=== PATIENT | female | born 1980 | race Caucasian/White ===

== ENCOUNTER 2017-11-04 08:52 | Inpatient (IN) | payer BC ==
[~2017-11-04] VITALS: Ht 165.1 cm; Wt 98.6 kg
[~2017-11-04 08:52] MED LIST: CALCTAB5 PO; FERR1TAB23 PO; FOLI400T34 PO; LAMO100T16 PO; MTR600X PO; PRENTAB26 PO
[2017-11-04 11:02] VITALS: Ht 165.1 cm; Wt 98.6 kg
[2017-11-04 11:07] LABS: HEMATOCRIT 40.6 % (37-47); MEAN CELL VOLUME 88.1 fL (80-100); MEAN CORPUSCULAR HEMOGLOBIN 30.8 pg (25-34); MEAN PLATELET VOLUME 10.9 fL (7.4-10.4); PLATELET COUNT 206 K/uL (130-400); RED BLOOD COUNT 4.61 M/uL (4.2-5.4)
[2017-11-04 11:32] LABS: ALB/GLOB RATIO 0.7 (0.9-2); BUN/CREATININE RATIO 17.6 (10-20); CALCIUM 8.9 mg/dl (8.5-10.1); CREATININE 0.8 mg/dl (0.60-1.20); POTASSIUM 4.1 mmol/L (3.5-5.1)
[2017-11-04] MEDS: LACTATED RINGER'S 1000ML 1,000 ML IV SCH ×2 (12:25→17:39)
[2017-11-04] MEDS ORDERED: FENTANYL 2MCG/ML ROPIV 1.25MG/ML 100ML BAG EPI ONE (12:28)
[2017-11-04] MEDS ORDERED: BUPIVACAINE 0.25% 30 ML VIAL ONE (12:28)
[2017-11-04] MEDS ORDERED: EpHEDrine SULFATE INJ 50 MG/ML AMP ONE (12:28)
[2017-11-04] MEDS ORDERED: FENTANYL CITRATE INJ 50 MCG/1 ML 2 ML VIAL ONE (12:29)
[2017-11-04] MEDS ORDERED: NALOXONE HCL INJ 1 MG in SODIUM CHLORIDE 0.9% 1000ML 1,000 ML IV PRN ×4 (13:25)
[2017-11-04] MEDS ORDERED: LACTATED RINGER'S 1000ML 500 ML IV PRN (13:25)
[2017-11-04] MEDS ORDERED: NALOXONE HCL INJ 0.4 MG/1 ML VIAL/CARP IV PRN (13:30)
[2017-11-04] MEDS ORDERED: NALBUPHINE HCL INJ 10 MG/ML AMP IV PRN (13:30)
[2017-11-04] MEDS ORDERED: FENTANYL 2MCG/ML ROPIV 1.25MG/ML 100ML BAG EPI PRN (13:30)
[2017-11-04] MEDS ORDERED: ONDANSETRON INJ 2 MG/ML 2 ML VIAL IV PRN (13:30)
[2017-11-04] MEDS ORDERED: DiphenhydrAMINE HCL 50 MG/ML VIAL IV PRN (13:30)
[2017-11-04] MEDS ORDERED: PROMETHAZINE HCL INJ 25 MG in SODIUM CHLORIDE 0.9% 50ML 50 ML IV PRN (13:30)
[2017-11-04] MEDS ORDERED: EpHEDrine SULFATE INJ 50 MG/ML AMP IV PRN (13:30)
--- NOTE | 2017-11-04 15:25 | HISTORY & PHYSICAL EXAMINATION ---
DATE OF ADMISSION: 11/04/2017 HISTORY OF PRESENT ILLNESS: The patient is a 37-year-old G3, P3 due date 11/01/2017 making her 40 weeks and 3 days today who presented to labor and delivery for labor check. On arrival to labor and delivery, she had no shortness of breath, no chills, no fever. No bloody show. Was examined and found to be about 1 cm dilated. She had contractions 1-2 minutes and contraction intensity, worsened also on my arrival. Two elevated blood pressures were recorded with 2+ protein uterine. Decision was therefore made to admit patient and anticipate labor. course has been unremarkable except for history of possible early twin seen earlier before 12 weeks. The is presently a ruiz however. The patient saw maternal medicine throughout her and has done well. LABS: Blood type O positive, antibody negative, rubella immune, GBS negative. PAST MEDICAL HISTORY: 1. The patient has a history of epilepsy. 2. Herpes zoster. PAST SURGICAL HISTORY: Dental procedures. 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 The patient had a second delivery in June 2015 with twin , baby weight 6 pounds 4 ounces and 6 pounds 10 ounces. SOCIAL HISTORY: The patient denies tobacco, drug or alcohol use. FAMILY HISTORY: Noncontributory. PHYSICAL EXAMINATION: GENERAL: Well-developed, well-nourished white female in labor discomfort. HEART: S1, S2, regular rhythm and rate. LUNGS: Clear to auscultation bilaterally, no wheezes, crackles or rales. ABDOMEN: Gravid. Bedside ultrasound shows cephalic presentation. EXTREMITIES: No cyanosis, clubbing or edema. PELVIC EXAMINATION: On admission is 1 cm. ASSESSMENT AND PLAN: A 37-year-old G3, P3 at 40 and 2. The patient admitted for labor. The patient has elevated blood pressures and protein in urine worked up for hypertensive disorder. GBS is negative. Admit patient and anticipate vaginal delivery.
[2017-11-04] MEDS ORDERED: OXYTOCIN 30 UNITS/500ML NSS IV PRN ×2 (16:30→18:30)
[2017-11-04] MEDS ORDERED: METHYLERGONOVINE MALEATE 0.2 MG/ML AMP ONE (18:09)
[2017-11-04] MEDS ORDERED: MISOPROSTOL 200 MCG TAB ONE (18:22)
[2017-11-04] MEDS ORDERED: MISOPROSTOL 200 MCG TAB PR SCH (18:30)
[2017-11-04] MEDS ORDERED: LANOLIN OINT EXT PRN ×2 (18:30)
[2017-11-04] MEDS ORDERED: METHYLERGONOVINE MALEATE 0.2 MG/ML AMP IM ONE (18:30)
[2017-11-04] MEDS ORDERED: HYDROCORTISONE ACETATE 25 MG SUPP PR PRN (18:30)
[2017-11-04] MEDS ORDERED: ACETAMINOPHEN/CODEINE 300/30MG TAB PO PRN ×2 (18:30)
[2017-11-04] MEDS ORDERED: OXYCODONE/ACETAMINOPHEN 5-325 TAB PO PRN (18:30)
[2017-11-04] MEDS ORDERED: SUPERCREAM 0.870 % 15GM JAR EXT PRN (18:30)
[2017-11-04] MEDS ORDERED: BENZOCAINE 20% AER SPR 82.5 GM CAN EXT PRN (18:30)
[2017-11-04] MEDS ORDERED: ACETAMINOPHEN 325 MG TAB PO PRN (18:30)
--- NOTE | 2017-11-04 19:06 | Anesthesia Procedure Note ---
Anesthesia Epidural Removal Nt Date & Time Nov 04, 2017 at 19:06 Vital Signs Pain Intensity: 0.0 Notes Mental Status: alert / awake / arousable, participated in evaluation Nausea / Vomiting: adequately controlled Pain: adequately controlled Airway Patency, RR, SpO2: stable & adequate BP & HR: stable & adequate Hydration State: stable & adequate Neuraxial Anesthesia: was administered Anesthetic Complications: no major complications apparent, pt satisfied with anesthetic care Epidural: removed without complications, with tip intact
[2017-11-04 21:10] VITALS: BP 165/102; PULSE 93; TEMP 37.5
--- NOTE | 2017-11-04 21:12 | Progress Note ---
Progress Note Date of Service Nov 04, 2017. Progress Note Pt is s/p VD doing well Elevated BP since delivery denies headache, SOB, visual changes or RUQ pain Plan repeat CBC and NURSE SANE start on labetalol
[2017-11-04] MEDS: DOCUSATE SODIUM 100 MG CAP PO SCH (21:40)
[2017-11-04 21:46] LABS: HEMATOCRIT 39.6 % (37-47); MEAN CELL VOLUME 88.6 fL (80-100); MEAN CORPUSCULAR HEMOGLOBIN 31.1 pg (25-34); MEAN PLATELET VOLUME 10.8 fL (7.4-10.4); PLATELET COUNT 185 K/uL (130-400); RED BLOOD COUNT 4.47 M/uL (4.2-5.4); WHITE BLOOD COUNT 17.26 K/uL (4.8-10.8)
[2017-11-04] MEDS: LABETALOL HCL 100 MG TAB PO SCH (21:47)
[2017-11-04 21:48] LABS: MEAN CORPUSCULAR HGB CONC 35.1 g/dl (32-36)
[2017-11-04 22:14] LABS: ALB/GLOB RATIO 0.7 (0.9-2); BUN/CREATININE RATIO 13.1 (10-20); CALCIUM 8.4 mg/dl (8.5-10.1); CREATININE 0.85 mg/dl (0.60-1.20)
[2017-11-04] MEDS: IBUPROFEN 600 MG TAB PO PRN (22:20)
[2017-11-04 23:40] VITALS: BP 161/94; PULSE 73; TEMP 37.3; O2SAT 97
[2017-11-04 23:55] VITALS: BP 135/82; PULSE 68
[2017-11-05 04:55] VITALS: BP 136/86; PULSE 76; TEMP 36.6; O2SAT 97
[2017-11-05] MEDS: IBUPROFEN 600 MG TAB PO PRN ×3 (05:36→21:37)
[2017-11-05 06:41] LABS: HEMATOCRIT 36.9 % (37-47)
--- NOTE | 2017-11-05 07:03 | DELIVERY SUMMARY ---
DATE OF OPERATION: 11/04/2017 DELIVERY NOTE The patient delivered a live female in left occiput anterior presentation. There was no nuchal cord. Infant was delivered, placed on mother's abdomen. Prior to delivery, the patient was known to have moderate meconium. Pediatric team was present at the time of delivery. Cord was clamped after 1 minute and handed over to the pediatric team. score is 9 and 9. Placenta was spontaneously delivered. Inspection of the placenta shows a normal gross placenta. Three-vessel cord was noted. Inspection of the perineum showed a second-degree midline laceration which was repaired in layers with 3-0 Vicryl. Rectal exam post repair showed good sphincter tone. No sutures were palpated in the rectum. Estimated blood loss was 500 mL. All instruments were removed from the vagina and accounted for x2 including sponges, needles and retractors. Baby and mother are doing well and hemodynamically stable. I attest to the content of the Intraoperative Record and any orders documented therein. Any exception s are noted below.
[2017-11-05 07:30] VITALS: BP 136/91; PULSE 65; TEMP 37.4; O2SAT 97
[2017-11-05] MEDS ORDERED: LABETALOL HCL 100 MG TAB PO SCH ×2 (08:00)
[2017-11-05] MEDS: LABETALOL HCL 100 MG TAB PO SCH ×2 (09:00→20:19)
[2017-11-05] MEDS: FERROUS SULFATE 325 MG TAB PO SCH (09:01)
[2017-11-05] MEDS: PRENATAL VITAMIN TAB PO SCH (09:01)
[2017-11-05] MEDS: DOCUSATE SODIUM 100 MG CAP PO SCH ×2 (09:04→20:18)
--- NOTE | 2017-11-05 09:27 | OB/GYN Progress Note ---
BELL STAFF Progress Note Date of Service Nov 05, 2017. Subjective conversation w/ patient, physical exam Ambulation: ambulating normally Voiding: no voiding problems Passing Gas: Yes Diet Tolerance: Regular Diet Lochia: Moderate Feeding Type: Bottle Feeding Pain: 11/24 Notes: Doing well, no concerns. Tolerating regular diet. Ambulating without difficulty. Denies SANCHEZ, changes in vision or abdominal pain. BP's improved on labetalol. Lochia moderate. Objective Vital Signs Date Time Temp Pulse Resp B/P (MAP) Pulse Ox O2 Delivery O2 Flow Rate FiO2 11/05/17 04:55 36.6 76 18 136/86 (103) 97 Room Air 11/04/17 23:55 68 135/82 (99) 11/04/17 23:40 37.3 73 18 161/94 (116) 97 Room Air 11/04/17 23:40 Room Air 11/04/17 21:10 Room Air 11/04/17 21:10 37.5 93 20 165/102 (123) Room Air Physical Exam General Appearance: WELL-APPEARING Respiratory/Chest: chest non-tender, lungs clear Cardiovascular: regular rate, rhythm Abdomen: normal bowel sounds, soft Fundus: Firm Extremities: normal range of motion, non-tender, no calf tenderness Laboratory Results Last 24 Hours Test 11/04/17 10:51 11/04/17 21:23 11/05/17 06:27 White Blood Count 12.40 K/uL 17.26 K/uL Red Blood Count 4.61 M/uL 4.47 M/uL Hemoglobin 14.2 g/dL 13.9 g/dL 12.7 g/dL Hematocrit 40.6 % 39.6 % 36.9 % Mean Corpuscular Volume 88.1 fL 88.6 fL Mean Corpuscular Hemoglobin 30.8 pg 31.1 pg Mean Corpuscular Hemoglobin Concent 35.0 g/dl 35.1 g/dl RDW Standard Deviation 42.6 fL 43.5 fL RDW Coefficient of Variation 13.3 % 13.5 % Platelet Count 206 K/uL 185 K/uL Mean Platelet Volume 10.9 fL 10.8 fL Sodium Level 134 mmol/L Potassium Level 4.1 mmol/L Chloride Level 105 mmol/L Carbon Dioxide Level 20 mmol/L Anion Gap 9.0 mmol/L Blood Urea Nitrogen 14 mg/dl Creatinine 0.80 mg/dl Est Creatinine Clear Calc Drug Dose 114.1 ml/min Estimated GFR () 110.7 Estimated GFR (Non- 95.5 BUN/Creatinine Ratio 17.6 Random Glucose 83 mg/dl Calcium Level 8.9 mg/dl Total Bilirubin 0.2 mg/dl Aspartate Amino Transf (AST/SGOT) 24 U/L Alanine Aminotransferase (ALT/SGPT) 23 U/L Alkaline Phosphatase 126 U/L Total Protein 6.8 gm/dl Albumin 2.8 gm/dl Globulin 4.0 gm/dl Albumin/Globulin Ratio 0.7 Assessment and Plan Post- Day Number: 1 Continue Routine Care: -Continue with labetalol, BP's improved -Continue routine care -Anticipate D/C home tomorrow.
[2017-11-05 13:00] VITALS: BP 132/88; PULSE 86; TEMP 37.3; O2SAT 98
[2017-11-05 16:00] VITALS: BP 146/89; PULSE 88; TEMP 37.4; O2SAT 97
[2017-11-05] MEDS ORDERED: BISACODYL 5 MG TABEC PO SCH (20:00)
[2017-11-05 23:15] VITALS: BP 124/76; PULSE 79; TEMP 36.8; O2SAT 97
[2017-11-06] MEDS ORDERED: BISACODYL 10 MG SUPP PR PRN (07:00)
[2017-11-06] MEDS: IBUPROFEN 600 MG TAB PO PRN (07:07)
[2017-11-06 08:35] VITALS: BP 119/76; PULSE 86; TEMP 37
[2017-11-06] MEDS: LABETALOL HCL 100 MG TAB PO SCH (09:01)
[2017-11-06] MEDS: FERROUS SULFATE 325 MG TAB PO SCH (09:02)
[2017-11-06] MEDS: DOCUSATE SODIUM 100 MG CAP PO SCH (09:02)
[2017-11-06] MEDS: PRENATAL VITAMIN TAB PO SCH (09:02)
--- NOTE | 2017-11-06 11:23 | OB/GYN Progress Note ---
MANAGER OF APPLICATIONS DEVELOPMENT Progress Note Date of Service: Nov 06, 2017. Patient is seen and examined. She feels well, no complaints. Ambulating without dizziness Voiding without difficulty Tolerating regular diet with out N&V Bleeding is minimal No fever/ chills/ CP/ SOB/ N&V/ Leg pain/ SANCHEZ/ Change in vision Bottle feeding without problems Date Time Temp Pulse Resp B/P (MAP) Pulse Ox O2 Delivery O2 Flow Rate FiO2 11/06/17 08:35 37.0 86 20 119/76 (90) Room Air 11/06/17 08:35 Room Air 11/05/17 23:15 36.8 79 18 124/76 (92) 97 Room Air 11/05/17 23:15 97 Room Air 11/05/17 16:00 37.4 88 16 146/89 (108) 97 Room Air 11/05/17 16:00 Room Air 11/05/17 13:00 37.3 86 16 132/88 (103) 98 Room Air Test 11/04/17 04:55 11/04/17 10:51 11/04/17 21:23 11/05/17 06:27 Sodium Level 134 L 134 L Potassium Level 4.0 4.1 Chloride Level 104 105 Carbon Dioxide Level 20 L 20 L Anion Gap 10.0 9.0 Blood Urea Nitrogen 11 14 Creatinine 0.85 0.80 Est Creatinine Clear Calc Drug Dose 107.4 114.1 Estimated GFR () 102.9 110.7 Estimated GFR (Non- 88.8 95.5 BUN/Creatinine Ratio 13.1 17.6 Random Glucose 97 83 Calcium Level 8.4 L 8.9 Total Bilirubin 0.3 0.2 Aspartate Amino Transferase (AST) 25 24 Alanine Aminotransferase (ALT) 20 23 Alkaline Phosphatase 121 H 126 H Total Protein 6.3 L 6.8 Albumin 2.5 L 2.8 L Globulin 3.8 4.0 Albumin/Globulin Ratio 0.7 L 0.7 L White Blood Count 12.40 H 17.26 H Red Blood Count 4.61 4.47 Hemoglobin 14.2 13.9 12.7 Hematocrit 40.6 39.6 36.9 L Mean Corpuscular Volume 88.1 88.6 Mean Corpuscular Hemoglobin 30.8 31.1 Mean Corpuscular Hemoglobin Concent 35.0 35.1 RDW Standard Deviation 42.6 43.5 RDW Coefficient of Variation 13.3 13.5 Platelet Count 206 185 Mean Platelet Volume 10.9 H 10.8 H PE: General: Alert, orientedx3, NAD Abd: soft, NT, fundus firm, below Umbilicus Perineum intact, Lochia rubra minimal Ext; NT, no edema AP: 37 yo s/p , ppd# 2 VSS Afebrile doing well BP normal on labetalol Recommended to check daily and call with increased number, continue with Labetalol Instructions were given when to call All questions were answered D/C home , f/u in a week
[2017-11-06] MEDS ORDERED: LBT100 PO (11:25)
--- NOTE | 2017-11-06 11:26 | Discharge Instructions ---
Discharge Instructions Date of Service Nov 06, 2017. Admission Reason for Admission: R/O Labor Discharge Discharge Diagnosis / Problem: Discharge Goals Goal(s): Routine recovery after delivery Activity Recommendations Activity Limitations: as noted below ACTIVITY RECOMMENDATIONS: * Gradual return to full activity over the next 2-3 weeks. * No lifting - nothing heavier than baby over the next 2-3 weeks. * Do not engage in vigorous exercise, sexual activity or sports until cleared by your physician. * Do not drive or operate any motorized equipment until cleared by your physician. * You may shower/bathe daily. BREAST CARE: If you are not breast feeding: * Wear a supportive bra 24 hours a day for one to two weeks. * Avoid stimulating your breasts and nipples as much as possible during the first few weeks after delivery. * When taking a shower, have the warm water hit your back, not breasts. * When your breasts feel full, apply ice packs. Usually three to four times a day helps ease the discomfort. * Take a mild pain medication (Tylenol/Motrin) when you are uncomfortable. If breast feeding: * Use breast milk to lubricate nipples. Lansinoh cream may be used for sore nipples. You do not need to remove cream prior to breast feeding. If using a different brand of cream, check the label for directions regarding removal of cream prior to nursing. * Wear a supportive bra. * If having problems with breasts or breast feeding, call a sediment remediation consultant or your health care provider. EPISIOTOMY CARE: After delivery, if you have an episiotomy (stitches), the following steps will ease discomfort and aid healing. * For the first 24 hours after delivery, place ice packs next to your episiotomy to help reduce swelling. * After the first 24 hour-period, sitz baths, either portable or in the tub, are suggested. A shower with a shower arm sprayed over the episiotomy may be comforting. * Corina care should be done after each voiding and bowel movement. Squirt warm water from a plastic bottle over the perineum (region of the body between the anus and urinary opening) and pat dry. * Use Dermoplast to ease discomfort. Shake container. [place] directly over the episiotomy. * Place a Tucks on a clean sanitary pad next to your episiotomy. OVER THE COUNTER MEDICATION: * For discomfort or pain, you may use Acetaminophen (Tylenol), Ibuprofen (Advil ), or Naproxen (Aleve) following the package directions. * For constipation you may use Colace following the package directions. SPECIAL CARE INSTRUCTIONS: When you are discharged from the hospital, it is important for you to follow the instructions listed below: * During the first week at home, you should be able to care for yourself and your baby. In addition, the usual light household activities are encouraged. * Limit your activities to the way you feel. Do not try to clean the house or move furniture. Be sensible. * If you actively engage in sports and have done so up until the time of your delivery, you may resume these activities as soon as you feel able. This may take up to one month or even longer. Use good judgment. * Continue to take your vitamins for at least six weeks after the of your baby. * Your diet need not be limited unless you were on a special diet before your delivery. Breast-feeding mothers need around 2500 calories per day and at least 64-80 ounces of fluid per day (8 to 10 glasses). * You should eat foods from the four major food groups. Crash diets or fad diets are to be avoided. Eating lean meats, fresh fruits and vegetables, low-fat dairy products, high fiber foods and a regular exercise program, will help you get back to your pre- weight without putting your health at risk. * Constipation is sometimes a problem after delivery. Take a mild laxative as needed. If breast feeding, Milk of Magnesia is acceptable to use. You may use a suppository or Fleets enema if no episiotomy. * A daily shower or tub bath is suggested. Be sure to thoroughly and gently dry the perineum. * A bloody vaginal discharge will usually continue until around four weeks post . A small amount of bleeding may continue for as long as six weeks. Vaginal discharge changes from the bright red bleeding after delivery to pink then brownish and finally yellowish-pink before becoming white and disappearing. * Bleeding may increase with activity. Your first period may come in 4-8 weeks. If you are breast feeding, your period may be delayed even longer. * [place] (sex) can begin whenever both you and your partner feel comfortable and do not have any form of genital infection. It is recommended that you wait until after your return appointment and discuss with your physician. If you have questions, please talk to your health care practitioner. A condom should be used to prevent infection and . * Foreplay, gentle intercourse and lubrication is very important the first several times to prevent pain. A water-based lubricant such as K-Y jelly or Astroglide may be used. * Tampons may be used six weeks after delivery. * Douching should be avoided for 6 weeks after delivery. * If you have RH negative blood and your baby is RH positive, you will receive RHOGAM by injection prior to discharge. The nurse will give you a card to keep with you that has the date and place that you received RHOGAM after delivery. * During your care, you had a Rubella screen done to check for the presence of rubella antibodies in your blood. If your test was negative, you will receive a Rubella vaccine prior to discharge. This vaccine may cause a fever, soreness at the injection site and flu-like symptoms. If these symptoms persist, notify your health care practitioner. is not advised for three months after a Rubella vaccine. There is a higher chance of having a baby with defects if conceived within three months of getting the vaccine. * If you were discharged 24 hours from delivery or before 48 hours: Visiting nurses will come to your home 48 hours after discharge to assess you and your baby. The visiting nurse will meet with you while you are in the hospital to arrange a time and get directions to your home. * Verbalizes understanding of car seat law as reviewed with patient nursing. * Car Seat hand-out given and reviewed with patient by nursing. * Shaken baby information reviewed with patient by nursing. Call you doctor if: * Heavy bleeding (saturating several pads an hour) or passing clots the size of your fist. * A fever >101 degrees F (38.3 degrees C) on two occasions four hours apart and/or chills. * Unusual pain in the pelvic or vaginal areas. * "Baby Blues" lasting longer than two weeks. If you have any questions or concerns, call your health care practitioner at . FOLLOW-UP VISIT: * Please call the office at to schedule a 6 week examination. It is important you keep this appointment. * It is important for you to make arrangements for either yearly or twice yearly check-ups thereafter. . Current Hospital Diet Patient's current hospital diet: Regular OB Diet Discharge Diet Recommended Diet: Regular Diet Pending Studies Studies pending at discharge: no Medical Emergencies . Who to Call and When: Medical Emergencies: If at any time you feel your situation is an emergency, please call 911 immediately. . Non-Emergent Contact Non-Emergency issues call your: Surgeon Call Non-Emergent contact if: temperature is above 100.5, your pain is not controlled, your pain is worsening, wound has increased drainage, you have any medication questions . . "Provider Documentation" section prepared by Alex Pichardo. . VTE Core Measure Inpt VTE Proph given/why not?: Treatment not indicated
[2017-11-06 15:40] VITALS: BP_DIAS 76; PULSE 86; TEMP 37
== END 2017-11-06 16:05 | disposition home or self-care (01) | DRG 775 ==
LOC: C.LD 08:52 → C.OPB 08:52 → C.LD 18:16 → C.OPB 18:17 → C.OBG 21:26
PROVIDERS: ADMIT Obstetrics & Gynecology; ATTEND Obstetrics & Gynecology
PROC: 0KQM0ZZ Repair Perineum Muscle, Open Approach (ICD-10-PCS; principal; 2017-11-04)
PROC: 10E0XZZ Delivery of Products of Conception, External Approach (ICD-10-PCS; principal; 2017-11-04)
DX: O99.353 Diseases of the nervous system complicating pregnancy, third trimester (principal); O09.523 Supervision of elderly multigravida, third trimester; O70.1 Second degree perineal laceration during delivery; Z37.0 Single live birth; G40.909 Epilepsy, unspecified, not intractable, without status epilepticus; Z3A.40 40 weeks gestation of pregnancy